=== PATIENT | female | born 1985 | race Caucasian/White ===

== ENCOUNTER 2020-11-04 19:30 | Inpatient (IN) | payer BC ==
[~2020-11-04 19:30] MED LIST: Bupivacaine 0.25% HCL 30 ML VIAL ONE
[2020-11-04 20:33] VITALS: BMI 27.8
[2020-11-04] MEDS ORDERED: Lidocaine 1% (PF) 30 ML VIAL SC PRN (20:49)
[2020-11-04] MEDS ORDERED: Butorphanol Tartrate 1 MG/ML VIAL SLOW IVP PRN (20:49)
[2020-11-04] MEDS ORDERED: Methylergonovine 0.2 MG/ML VIAL IM PRN (20:49)
[2020-11-04] MEDS ORDERED: NS / Oxytocin 40 units/1000ml 1,000 ML IV PRN (20:49)
[2020-11-04] MEDS ORDERED: Carboprost 250 MCG/ML AMP IM PRN (20:49)
[2020-11-04] MEDS ORDERED: Misoprostol 200 MCG TAB PR PRN (20:49)
[2020-11-04] MEDS ORDERED: HYDROcodone/Acetaminophen 5/325 mg Tablet PO PRN ×2 (20:49)
[2020-11-04] MEDS ORDERED: Acetaminophen 500 MG TAB PO PRN (20:49)
[2020-11-04] MEDS ORDERED: Diphenoxylate HCl/Atropine Tablet PO PRN ×2 (20:49)
[2020-11-04] MEDS ORDERED: Ibuprofen 800 MG TAB PO PRN (20:49)
[2020-11-04] MEDS ORDERED: hydrALAZINE 20 MG/ML VIAL SLOW IVP PRN (20:49)
[2020-11-04] MEDS ORDERED: Ondansetron PF 4 MG/2 ML Vial IVP PRN (20:49)
[2020-11-04] MEDS ORDERED: Promethazine HCl 25 MG/ML VIAL IM PRN (20:49)
[2020-11-04] MEDS: Misoprostol 100 MCG TAB VAG SCH (22:05)
[2020-11-04 22:14] LABS: Mean Corpuscular HGB CONC 33.1 g/dL (32.0-36.0); Mean Corpuscular Hemoglobin 30.8 pg (27.0-33.0); Mean Corpuscular Volume 93.1 fl (81.6-98.3); Mean Platelet Volume 10.8 fl (7.4-10.4); Platelet Count 196 10x3/uL (150-450); RBC Distribution Width 12.7 % (11.5-14.5); Red Blood Cell (RBC) Count 3.89 10x6/uL (3.90-5.03); White Blood Cell (WBC) Count 10.1 10x3/uL (3.5-10.5)
[2020-11-04 22:40] LABS: Hep B Surf Ag Non-Reactive S/CO (NonReactive); Syphilis Antibody Nonreactive (Nonreactive); Syphilis Antibody Index 0.01 S/CO (<1.00 Non-Reactive)
[2020-11-04 22:42] LABS: HBSAg Index 0.18 S/CO (0-0.99)
[2020-11-05] MEDS: Misoprostol 100 MCG TAB VAG SCH (08:24)
[2020-11-05] MEDS: Lactated Ringer's 1,000 ML IV SCH ×3 (10:50→15:22)
[2020-11-05] MEDS ORDERED: Fentanyl 4 mcg/Bup 0.1% Cadd 100 ML ONE (12:04)
[2020-11-05] MEDS: Fentanyl 4 mcg/Bupivacaine 0.1% Cassette 100 ML EPIDURAL SCH ×2 (13:21→20:09)
[2020-11-05] MEDS ORDERED: Promethazine HCl 25 MG/ML VIAL IM PRN (13:32)
[2020-11-05] MEDS ORDERED: diphenhydrAMINE 50 MG/ML VIAL IVP PRN (13:32)
[2020-11-05] MEDS ORDERED: Ondansetron PF 4 MG/2 ML Vial IVP PRN (13:32)
[2020-11-05] MEDS ORDERED: Lactated Ringer's 500 ML IV PRN (13:32)
[2020-11-05] MEDS ORDERED: Naloxone HCl 0.4 mg/ml Vial IVP PRN ×2 (13:32)
[2020-11-05] MEDS ORDERED: Communication Order-Pharmacy FS SCH (13:45)
[2020-11-05] MEDS ORDERED: ePHEDrine Sulfate 50 MG/10 ML VIAL SLOW IVP PRN (13:45)
[2020-11-05] MEDS ORDERED: NS w/ Oxytocin 30 units 500 ML ONE ×2 (14:25→23:05)
[2020-11-06] MEDS: Ibuprofen 800 MG TAB PO PRN ×3 (05:12→21:24)
[2020-11-06] MEDS ORDERED: Benzocaine-Menthol 82.5 ML CAN TOP PRN (07:45)
[2020-11-06] MEDS: Prenatal Vitamin 1 TAB PO SCH (08:58)
[2020-11-06] MEDS: Docusate Calcium (SURFAK) 240 MG CAP PO SCH ×2 (08:58→21:31)
[2020-11-06] MEDS: Acetaminophen 325 MG TAB PO PRN ×2 (09:03→17:16)
[2020-11-06 20:27] VITALS: TEMP 98.3
[2020-11-06] MEDS: Lactated Ringer's 1,000 ML IV SCH (21:31)
[2020-11-07] MEDS: Misoprostol 100 MCG TAB VAG SCH ×5 (00:54→01:21)
[2020-11-07] MEDS: Lactated Ringer's 1,000 ML IV SCH ×2 (01:14→01:21)
[2020-11-07] MEDS: Ibuprofen 800 MG TAB PO PRN (04:20)
[2020-11-07 08:11] VITALS: BP 129/79
[2020-11-07] MEDS: Docusate Calcium (SURFAK) 240 MG CAP PO SCH (09:06)
[2020-11-07] MEDS: Prenatal Vitamin 1 TAB PO SCH (09:07)
== END 2020-11-07 14:25 | disposition home or self-care (01) | DRG 807 ==
LOC: CSHLD 19:52 → CSHPP 11-06 00:45
PROVIDERS: ADMIT Obstetrics & Gynecology; ATTEND Obstetrics & Gynecology
PROC: 3E0P7VZ Introduction of Hormone into Female Reproductive, Via Natural or Artificial Opening (ICD-10-PCS; 2020-11-04)
PROC: 10E0XZZ Delivery of Products of Conception, External Approach (ICD-10-PCS; principal; 2020-11-05)
DX: O80 Encounter for full-term uncomplicated delivery (principal); Z37.0 Single live birth; Z3A.39 39 weeks gestation of pregnancy; Z28.21 Immunization not carried out because of patient refusal
CPT/HCPCS: 36415; 51702; 85027; 86780; 86850; 86900; 86901; 87340; J2405; S0020